=== PATIENT | female | born 1965 | race Caucasian/White ===

== ENCOUNTER 2020-03-23 09:41 | Outpatient (CLI) | payer MEDICARE, SELFPAY ==
--- NOTE | ~2020-03-23 | US_ITS ---
US thyroid INDICATION: Dysphagia. Enlarged thyroid gland. TECHNIQUE: Real-time sonographic images of the thyroid gland were obtained. COMPARISON: No prior studies for comparison. FINDINGS: The right thyroid lobe measures 2.7 x 1 x 1.1 cm. The left thyroid lobe measures 3.6 x 1.2 x 0.9 cm. There is normal echotexture and echogenicity throughout the thyroid gland. There are small hypoechoic nodules of both lobes, largest in the right measuring 4 mm in largest on the left measuri ng 6 mm. The right thyroid nodules are largely cystic and benign appearing. The left thyroid nodule i s heterogeneous with areas of increased and decreased echogenicity, wider than tall, solid, ill-defin ed margins without definite calcifications, TR 3. No areas are identified in the left superior neck in the area of palpable fullness. IMPRESSION: 1. Small bilateral thyroid nodules measuring 6 mm or less, likely benign. Reviewed, dictated and finalized at location B. [employer]
== END 2020-03-23 09:42 ==
LOC: MICIMG 09:42
PROVIDERS: Visit Provider Nurse Practitioner Family
DX: R13.10 Dysphagia, unspecified (principal); E04.2 Nontoxic multinodular goiter
CPT/HCPCS: 76536